=== PATIENT | male | born 1985 ===

== ENCOUNTER 2020-02-27 05:21 | Emergency (ER) | payer SELFPAY ==
[2020-02-27 08:47] VITALS: BP 126/85
--- NOTE | 2020-02-27 08:52 | Emergency Department Report ---
Chief Complaint: Extremity Injury, Lower Stated Complaint: FEET PAIN Time Seen by Provider: 02/27/20 08:41 - HPI History of Present Illness: 34-year-old male who reports that he has bilateral foot pain that he has had for over 20 years. Patient admits that he is homeless and he is constantly walking on his feet. Patient has a current history of schizophrenia. Patient denies any homicidal or suicidal ideation. Patient denies hearing any voices at this time. Patient has slept in our waiting area for the last 3-1/2 hours. - Exam Physical Exam: Alert and oriented x3 no acute distress nontoxic in appearance Lower extremities full range of motion bilateral. Feet thick calluses on the soles of both feet. No open blisters pulses are intact full range of motion's of toes and ankle. Ambulatory without difficulties. MSE screening note: Focused history and physical exam performed. Due to findings the following was ordered: 34-year-old male who reports that he has bilateral foot pain that he has had for over 20 years. Patient admits that he is homeless and he is constantly walking on his feet. Patient has a current history of schizophrenia. Patient denies any homicidal or suicidal ideation. Patient denies hearing any voices at this time. Patient has slept in our waiting area for the last 3-1/2 hours. Recommend patient to take [id number] Tylenol or ibuprofen for pain management. I recommend patient to soak his feet. Discussed with patient he should check in to a homeless long term. ED Disposition for MSE Disposition: MED SCREENING EXAM-LEFT Is pt being admited?: No Does the pt Need Aspirin: No Condition: Stable Additional Instructions: Recommend patient to take [id number] Tylenol or ibuprofen for pain management. I recommend patient to soak his feet. Discussed with patient he should check in to a homeless long term. Referrals: PRIMARY CARE, [Primary Care Provider] - 3-5 Days [facility] [place] 2[place] [Outside] - 3-5 Days [facility] [Outside] - 3-5 Days
== END 2020-02-27 09:15 | disposition left against medical advice (07) ==
LOC: ED 05:21
DX: M25.579 Pain in unspecified ankle and joints of unspecified foot (principal); Z53.21 Procedure and treatment not carried out due to patient leaving prior to being seen by health care provider